=== PATIENT | male | born 1980 | race Two or more races ===

== ENCOUNTER 2024-02-29 11:16 | Inpatient (IN) | payer OTHER ==
[2024-03-06] MEDS ORDERED: LIDOCAINE HCL 1%/EPINEPHRINE 20ML VIAL IJ ONE (17:30)
[2024-03-06] MEDS ORDERED: BUPIVACAINE HCL 30 ML VIAL IJ ONE (17:30)
[2024-03-06] MEDS ORDERED: CEFTRIAXONE SODIUM 2,000 MG in 0.9 % SODIUM CHLORIDE 50 ML IV ONE (17:30)
[2024-03-06] MEDS ORDERED: METRONIDAZOLE/SODIUM CHLORIDE 200 ML IV ONE (17:30)
[2024-03-06] MEDS ORDERED: OxyCODONE HCL 5 MG TABLET (ROXICODONE) PO PRN (19:30)
[2024-03-06] MEDS ORDERED: 0.9 % SODIUM CHLORIDE 1,000 ML IV SCH (19:30)
[2024-03-06] MEDS ORDERED: DEXTROSE 50 % IN WATER 0.5 G/ML DISP.SYRIN IV PRN (19:30)
[2024-03-06] MEDS ORDERED: ONDANSETRON HCL 2 MG/ML VIAL IV PRN (19:30)
[2024-03-06] MEDS ORDERED: MORPHINE SULFATE 4 MG/ML CARTRIDGE IV PRN (19:30)
[2024-03-06] MEDS ORDERED: ACETAMINOPHEN 500 MG GEL..CAP PO SCH (20:00)
[2024-03-06] MEDS ORDERED: METOCLOPRAMIDE HCL 5 MG/ML VIAL IV ONE (20:20)
[2024-03-06] MEDS ORDERED: PROMETHAZINE HCL 50 MG/ML AMPUL IV ONE (20:20)
[2024-03-06] MEDS ORDERED: CELECOXIB 200 MG CAPSULE PO SCH (21:00)
[2024-03-06] MEDS ORDERED: FAMOTIDINE/PF 20 MG/2 ML VIAL IV PUSH SCH (21:00)
[2024-03-06 21:35] LABS: HEMATOCRIT 38.1 % (39.0-48.0); MEAN CELL VOLUME 85.2 fL (80.0-100.00); PLATELET COUNT 315 K/uL (150-450); RED BLOOD COUNT 4.47 M/uL (4.00-6.00); RED CELL DISTRIBUTION WIDTH 13.9 % (11.5-14.5)
[2024-03-06 21:43] LABS: ALBUMIN 3.4 gm/dL (3.4-5.0); CALCIUM 8.7 mg/dL (8.5-10.1); CREATININE SERUM 0.98 mg/dL (0.70-1.30); GFR 83.09; MAGNESIUM 2.1 mg/dL (1.8-2.4); PHOSPHOROUS 3.4 mg/dL (2.5-4.9); POTASSIUM 3.79 mEq/L (3.5-5.1)
[2024-03-07] MEDS ORDERED: GABAPENTIN 300 MG CAPSULE PO SCH (01:00)
[2024-03-07 06:48] LABS: HEMATOCRIT 37.2 % (39.0-48.0); HEMOGLOBIN 12.9 g/dL (13-16.00); MEAN CELL VOLUME 84.4 fL (80.0-100.00); MEAN CORPUSCULAR HEMOGLOBIN 29.2 pg (27.00-32.0); MEAN CORPUSCULAR HGB CONC 34.5 g/dl (32.0-36.0); PLATELET COUNT 302 K/uL (150-450); RED BLOOD COUNT 4.41 M/uL (4.00-6.00); RED CELL DISTRIBUTION WIDTH 14.2 % (11.5-14.5)
[2024-03-07 07:40] LABS: ALBUMIN 3.1 gm/dL (3.4-5.0); CALCIUM 8.9 mg/dL (8.5-10.1); CREATININE SERUM 0.85 mg/dL (0.70-1.30); GFR 97.92; MAGNESIUM 2.1 mg/dL (1.8-2.4); PHOSPHOROUS 3.6 mg/dL (2.5-4.9); POTASSIUM 4.15 mEq/L (3.5-5.1)
[2024-03-07 08:00] VITALS: BP 125/66; O2SAT 100
[2024-03-07] MEDS ORDERED: HYOSCYAMINE SULFATE 0.125 MG TAB.SUBL SL SCH (09:00)
[2024-03-07] MEDS ORDERED: ENOXAPARIN SODIUM 40 MG/0.4 ML SYRINGE SUBCUTANEO SCH (17:00)
[2024-03-07] MEDS ORDERED: POLYETHYLENE GLYCOL 3350 17 GM BLIST.PACK PO SCH (17:00)
[2024-03-07 18:27] VITALS: BP 113/75; O2SAT 99
[2024-03-08 06:50] VITALS: BP 132/72; O2SAT 95
[2024-03-08] MEDS ORDERED: PERCOCET 5-3251 EACH PO (07:56)
[2024-03-08] MEDS ORDERED: HYOSCYAMINE0.125 M1 SL (07:56)
[2024-03-08] MEDS ORDERED: ENOXAPARIN SODIUM 40 MG/0.4 ML SYRINGE SUBCUTANEO SCH (09:00)
== END 2024-03-08 08:54 | disposition home or self-care (01) | DRG 337 ==
LOC: O/R 03-06 07:10 → SURH 03-06 11:15
PROVIDERS: ADMIT Surgery; ATTEND Surgery
PROC: 0DBV0ZX Excision of Mesentery, Open Approach, Diagnostic (ICD-10-PCS; 2024-03-06)
PROC: 0DNN0ZZ Release Sigmoid Colon, Open Approach (ICD-10-PCS; principal; 2024-03-06 11:15)
DX: C18.7 Malignant neoplasm of sigmoid colon (principal); R59.0 Localized enlarged lymph nodes; D64.9 Anemia, unspecified

== ENCOUNTER 2024-04-20 06:00 | Day surgery (SDC) | payer OTHER ==
[~2024-04-20 06:00] MED LIST: HYOSCYAMINE0.125 M1 SL; PERCOCET 5-3251 EACH PO
[2024-04-20] MEDS ORDERED: CEFAZOLIN SODIUM 1,000 MG VIAL ONE (07:59)
[2024-04-20] MEDS ORDERED: BUPIVACAINE HCL/Mpf 0.5% 10ML VIAL ONE ×2 (08:53→09:33)
[2024-04-20] MEDS ORDERED: LIDOCAINE HCL 1% 20 ML VIAL IJ ONE (08:53)
[2024-04-20] MEDS ORDERED: HEPARIN SODIUM,PORCINE/PF 100 UNIT/ML SYRINGE IV ONE (09:15)
[2024-04-20] MEDS ORDERED: PERCOCET 5-3251 EACH PO (09:55)
== END 2024-04-20 11:25 | disposition home or self-care (01) ==
LOC: CIR.AMB 06:00
PROVIDERS: ATTEND Surgery
DX: C18.7 Malignant neoplasm of sigmoid colon (principal); C48.0 Malignant neoplasm of retroperitoneum; C48.1 Malignant neoplasm of specified parts of peritoneum; R59.0 Localized enlarged lymph nodes
CPT/HCPCS: 36561; C1751

== ENCOUNTER 2024-06-06 17:04 | Inpatient (IN) | payer OTHER ==
[~2024-06-06] VITALS: Ht 167.6 cm; Wt 0.5 kg
[2024-06-06] MEDS ORDERED: [UNRECOGNIZED DRUG - OTHER] (17:12)
--- NOTE | 2024-06-06 17:12 | NUR ---
PACIENTE MASCULINO ALERTA Y ORIENTADO X3, LLEGA A NIELS DE EMERGENCIA EN AMBULANCIA Y ES TRASLADO DEL CT DE [place]. REFIERE DOLOR ABDOMINAL LEVY Y DOMINGO.
[2024-06-06] MEDS ORDERED: 0.9 % SODIUM CHLORIDE 1,000 ML IV SCH ×2 (17:45→23:00)
[2024-06-06] MEDS ORDERED: PIPERACILLIN/TAZOBACTAM SODIUM 3.375 GM VIAL IV ONE (17:45)
--- NOTE | 2024-06-06 17:46 | NUR ---
SE LE ORIENTA A PACIENTE SOBRE LA ORDEN MEDICA, REFIERE ENTENDER LAS MISMAS. SE CANALIZA Y SE LE COLOCA EL IVF'S, SE LE ANNIE LAS MUESTRAS Y SE ADMINISTRAN EL MEDICAMENTO Y SE NOTIFICA PARA REALIZA CT TALIA LA ORDEN MEDICA.
[2024-06-06 17:56] LABS: HEMOGLOBIN 11.9 g/dL (13-16.00); MEAN CELL VOLUME 91.3 fL (80.0-100.00); MEAN CORPUSCULAR HGB CONC 33.9 g/dl (32.0-36.0); PLATELET COUNT 253 K/uL (150-450); RED BLOOD COUNT 3.83 M/uL (4.00-6.00)
[2024-06-06 17:58] LABS: RED CELL DISTRIBUTION WIDTH 19.6 % (11.5-14.5)
[2024-06-06 18:09] LABS: PH,URINE 6.5 (5.0-8.0); URINE APPEARANCE Clear; URINE BILIRRUBIN Negative (NEGATIVE); URINE BLOOD Negative; URINE COLOR Yellow; URINE GLUCOSE Negative (NEGATIVE); URINE KETONE Trace (NEGATIVE); URINE LEUKOCYTE Negative; URINE NITRATE Negative; URINE PROTEIN Negative (NEGATIVE)
[2024-06-06 18:12] LABS: INR 1.15; PARTIAL THROMBOPLASTIN TIME 29.2 SECONDS (22.0-34.0); PROTHROMBIN TIME 12.4 SECONDS (9.0-11.5)
[2024-06-06 18:13] LABS: URINE RBC 18.7 uL (0.0-20.8); URINE WBC 3.3 uL (0.0-23.2)
[2024-06-06 18:14] LABS: URINE BACTERIA 1.2 uL (0.0-1933); URINE CAST 0.14 uL (0.0-1.40); URINE EPITHELIAL CELLS 1.2 uL (0.0-38.8)
[2024-06-06 18:16] LABS: BILIRUBIN TOTAL 1.11 mg/dL (0.3-1.2); CALCIUM 9.6 mg/dL (8.5-10.1); CREATININE SERUM 1.38 mg/dL (0.70-1.30); GFR 55.97; GLOBULINA 5.2 G/DL (2.4-3.5); POTASSIUM 4.18 mEq/L (3.5-5.1); TOTAL PROTEIN 8.2 gm/dL (6.4-8.2)
[2024-06-06] MEDS ORDERED: CEFTRIAXONE SODIUM 2,000 MG in 0.9 % SODIUM CHLORIDE 100 ML IV SCH (22:58)
[2024-06-06] MEDS ORDERED: ACETAMINOPHEN 500 MG GEL..CAP PO PRN (23:00)
[2024-06-07] MEDS ORDERED: MORPHINE SULFATE 2 MG/ML SYRINGE IV PRN (00:30)
[2024-06-07] MEDS ORDERED: KETOROLAC TROMETHAMINE 15 MG VIAL IV ONE (00:30)
[2024-06-07 00:39] LABS: INR 1.15; PARTIAL THROMBOPLASTIN TIME 29.5 SECONDS (22.0-34.0); PROTHROMBIN TIME 12.4 SECONDS (9.0-11.5)
[2024-06-07 07:43] VITALS: BP 126/71; O2SAT 97
[2024-06-07] MEDS ORDERED: ENOXAPARIN SODIUM 40 MG/0.4 ML SYRINGE SUBCUTANEO SCH (09:00)
[2024-06-07] MEDS ORDERED: FAMOTIDINE/PF 20 MG in 0.9 % SODIUM CHLORIDE 8 ML IV PUSH SCH (09:00)
[2024-06-07 15:30] VITALS: BP 133/68; O2SAT 97
[2024-06-07 16:41] VITALS: BP 144/83; O2SAT 96
[2024-06-07] MEDS ORDERED: TRAMADOL HCL 50 MG TABLET PO PRN (18:00)
[2024-06-08 00:13] VITALS: BP 111/66; O2SAT 95
[2024-06-08 08:49] VITALS: BP 139/84; O2SAT 97
[2024-06-08 08:51] LABS: HEMATOCRIT 33.1 % (39.0-48.0); HEMOGLOBIN 11.6 g/dL (13-16.00); MEAN CELL VOLUME 89.3 fL (80.0-100.00); MEAN CORPUSCULAR HEMOGLOBIN 31.4 pg (27.00-32.0); MEAN CORPUSCULAR HGB CONC 35.2 g/dl (32.0-36.0); PLATELET COUNT 291 K/uL (150-450); RED CELL DISTRIBUTION WIDTH 19.8 % (11.5-14.5)
[2024-06-08 09:14] LABS: ALBUMIN 2.6 gm/dL (3.4-5.0); CALCIUM 8.8 mg/dL (8.5-10.1); CREATININE SERUM 1.28 mg/dL (0.70-1.30); GFR 61.05; MAGNESIUM 2.1 mg/dL (1.8-2.4); PHOSPHOROUS 3.9 mg/dL (2.5-4.9); POTASSIUM 4.35 mEq/L (3.5-5.1)
[2024-06-08 16:17] VITALS: BP 128/73; O2SAT 95
[2024-06-08] MEDS ORDERED: MIDAZOLAM HCL 2 MG/2 ML VIAL IV PUSH ONE (17:00)
[2024-06-08] MEDS ORDERED: fentaNYL CITRATE 50 MCG/ML AMPUL IV PUSH ONE ×2 (17:00→18:15)
[2024-06-09 00:30] VITALS: BP 136/78; O2SAT 100
[2024-06-09 08:52] VITALS: BP 132/84; O2SAT 95
[2024-06-09 16:49] VITALS: BP 137/87; O2SAT 95
[2024-06-09] MEDS ORDERED: TRAMADOL HCL 50 MG TABLET PO PRN (18:45)
[2024-06-09 19:31] LABS: URINE APPEARANCE Cloudy; URINE BILIRRUBIN Small (NEGATIVE); URINE BLOOD Large; URINE COLOR Red; URINE GLUCOSE Negative (NEGATIVE); URINE LEUKOCYTE Moderate; URINE NITRATE Negative; URINE UROBILINOGEN 0.2 E.U./dl
[2024-06-09 19:34] LABS: URINE BACTERIA 380.6 uL (0.0-1933); URINE CAST 6.82 uL (0.0-1.40); URINE EPITHELIAL CELLS 62.5 uL (0.0-38.8)
[2024-06-09 19:55] LABS: URINE KETONE 40 (NEGATIVE); URINE MUCUS MODERATE; URINE PROTEIN 300 (NEGATIVE); URINE RBC > 10558.9 uL (0.0-20.8)
[2024-06-10] VITALS: BP 119/74; O2SAT 94
[2024-06-10 08:52] VITALS: BP 137/83; O2SAT 95
[2024-06-10 16:00] VITALS: BP 132/86; O2SAT 96
[2024-06-11 01:55] VITALS: BP 119/73; O2SAT 94
[2024-06-11 08:53] VITALS: BP 102/69; O2SAT 95
[2024-06-11 16:00] VITALS: BP 137/77; O2SAT 96
[2024-06-12] VITALS: BP 110/73; O2SAT 96
[2024-06-12] MEDS ORDERED: TRAMADOL HCL 50 MG TABLET PO PRN (05:15)
[2024-06-12 06:39] LABS: HEMATOCRIT 32.5 % (39.0-48.0); HEMOGLOBIN 11.2 g/dL (13-16.00); MEAN CELL VOLUME 91.4 fL (80.0-100.00); MEAN CORPUSCULAR HEMOGLOBIN 31.6 pg (27.00-32.0); MEAN CORPUSCULAR HGB CONC 34.5 g/dl (32.0-36.0); PLATELET COUNT 333 K/uL (150-450); RED BLOOD COUNT 3.56 M/uL (4.00-6.00); RED CELL DISTRIBUTION WIDTH 19.7 % (11.5-14.5)
[2024-06-12 07:06] LABS: CALCIUM 8.9 mg/dL (8.5-10.1); CREATININE SERUM 0.73 mg/dL (0.70-1.30); GFR 116.72; POTASSIUM 4.04 mEq/L (3.5-5.1)
[2024-06-12 08:00] VITALS: BP 117/67; O2SAT 96
[2024-06-12 16:26] VITALS: BP 153/70; O2SAT 97
[2024-06-12 16:33] VITALS: BP 126/72; O2SAT 97
[2024-06-12] MEDS ORDERED: VANCOMYCIN HCL 1,000 MG VIAL IV SCH (21:00)
[2024-06-13] VITALS: BP 113/70; O2SAT 97
[2024-06-13] MEDS ORDERED: AZITHROMYCIN 500 MG VIAL IV STA (05:44)
[2024-06-13 06:53] LABS: HEMOGLOBIN 11.4 g/dL (13-16.00); MEAN CELL VOLUME 92.3 fL (80.0-100.00); MEAN CORPUSCULAR HGB CONC 33.6 g/dl (32.0-36.0); PLATELET COUNT 358 K/uL (150-450); RED BLOOD COUNT 3.68 M/uL (4.00-6.00); RED CELL DISTRIBUTION WIDTH 19.8 % (11.5-14.5)
[2024-06-13 06:55] LABS: ERYTHROCYTE SEDIMENTATION RATE 75 mm/hr
[2024-06-13 07:27] LABS: CALCIUM 9.1 mg/dL (8.5-10.1); CREATININE SERUM 0.7 mg/dL (0.70-1.30); GFR 122.51; MAGNESIUM 1.9 mg/dL (1.8-2.4); PHOSPHOROUS 3.4 mg/dL (2.5-4.9); POTASSIUM 3.99 mEq/L (3.5-5.1)
[2024-06-13 07:28] LABS: C-REACTIVE PROTEIN 11.6 MG/DL (0.00-0.29)
[2024-06-13 08:50] VITALS: BP 112/73; O2SAT 95
[2024-06-13 16:00] VITALS: BP 113/73; O2SAT 95
[2024-06-13] MEDS ORDERED: VANCOMYCIN HCL 1,000 MG VIAL ONE (16:38)
[2024-06-14 00:45] VITALS: BP 107/70; O2SAT 98
[2024-06-14] MEDS ORDERED: AZITHROMYCIN 500 MG VIAL IV ONE (07:15)
[2024-06-14] MEDS ORDERED: VANCOMYCIN HCL 1,000 MG VIAL ONE ×3 (07:15→14:13)
[2024-06-14 08:56] VITALS: BP 119/74; O2SAT 96
[2024-06-14] MEDS ORDERED: AZITHROMYCIN 500 MG VIAL IV SCH (09:00)
[2024-06-14 16:29] VITALS: BP 120/71; O2SAT 96
[2024-06-15 00:50] VITALS: BP 138/89; O2SAT 98
[2024-06-15] MEDS ORDERED: AZITHROMYCIN 500 MG VIAL IV ONE (06:46)
[2024-06-15] MEDS ORDERED: VANCOMYCIN HCL 1,000 MG VIAL ONE ×2 (06:47→14:23)
[2024-06-15 08:00] VITALS: BP 138/95; O2SAT 96
[2024-06-15] MEDS ORDERED: ALPRAzolam 0.25 MG TABLET PO SCH (09:44)
[2024-06-15 16:00] VITALS: BP 131/77; O2SAT 96
[2024-06-16 00:15] VITALS: BP 155/88; O2SAT 95
[2024-06-16] MEDS ORDERED: AZITHROMYCIN 500 MG VIAL IV ONE (06:31)
[2024-06-16] MEDS ORDERED: VANCOMYCIN HCL 1,000 MG VIAL ONE (06:32)
[2024-06-16 08:40] VITALS: BP 131/83; O2SAT 95
[2024-06-16] MEDS ORDERED: TRAMADOL HCL50 MG PO (11:51)
[2024-06-16] MEDS ORDERED: AZITHROMYCIN500 MG PO (11:51)
== END 2024-06-16 13:51 | disposition home or self-care (01) | DRG 690 ==
LOC: ER 17:04 → SEC-K 23:00 → SURG 23:00 → SEC-K 06-07 01:02 → SURH 06-07 13:42
PROVIDERS: Emergency Medicine; General Practice; Internal Medicine; Internal Medicine Infectious Disease; ADMIT Internal Medicine Geriatric Medicine; ATTEND Internal Medicine Geriatric Medicine
PROC: BW21ZZZ Computerized Tomography (CT Scan) of Abdomen and Pelvis (ICD-10-PCS; principal; 2024-06-06)
PROC: 0T9130Z Drainage of Left Kidney with Drainage Device, Percutaneous Approach (ICD-10-PCS; 2024-06-08)
PROC: 8E0ZXY6 Isolation (ICD-10-PCS; 2024-06-08)
PROC: BW21YZZ Computerized Tomography (CT Scan) of Abdomen and Pelvis using Other Contrast (ICD-10-PCS; 2024-06-13)
DX: N12 Tubulo-interstitial nephritis, not specified as acute or chronic (principal); C18.7 Malignant neoplasm of sigmoid colon; D84.9 Immunodeficiency, unspecified; C48.0 Malignant neoplasm of retroperitoneum; N17.8 Other acute kidney failure; N13.39 Other hydronephrosis

== ENCOUNTER 2024-10-31 10:01 | Inpatient (IN) | payer OTHER ==
[~2024-10-31] VITALS: Ht 152.4 cm; Wt 68.0 kg
[~2024-10-31 10:01] MED LIST changes: +AZITHROMYCIN500 MG PO; +TRAMADOL HCL50 MG PO; +[UNRECOGNIZED DRUG - OTHER]
[2024-10-31] MEDS ORDERED: FENTANYL1 EAC6 TD (11:02)
[2024-10-31] MEDS ORDERED: PERCOCET 10-321 EACH (11:03)
--- NOTE | 2024-10-31 11:03 | NUR ---
SE RECIBE PACIENTE ALERTA Y CONCIENTE X3 ACOMPANADO DE TAVERAS DOTTIE. LA MISMA INDICA QUE EL PACIENTE PRESENTA ANEMIA POR UNOS RESULTADOS DE LAB. SE PROCEDE A ANNA S/V AL PACIENTE Y SE UBICA EN KASEY 8 CON BARANDAS ELEVADAS Y NIVEL MAS BAJO DE ESTA.
[2024-10-31] MEDS ORDERED: FAMOtidine 10 MG/ML (4ML VIAL) IV ONE (11:30)
--- NOTE | 2024-10-31 12:21 | NUR ---
SE ORIENTA A PACIENTE SOBRE TX MEDICO, REFIERE ENTENDER. SE REALIZAN MUESTRAS DE LABORATORIO BAJO MEDIDAS ASEPTICAS. SE ADMINISTRA IV'S Y MEDICAMENTOS TALIA ORDEN MEDICA. SE COORDINA CT Y ROSEANN X. SE REALIZA EKG Y SE PRESENTA A .
[2024-10-31] MEDS ORDERED: MORPHINE SULFATE 4 MG/ML VIAL IV ONE (12:30)
[2024-10-31 12:37] LABS: BASO % 1.0 % (0.1-1.2); EOS # 0.03 (0.04-0.54); EOS % 1.5 % (0.7-7.0); LYMPH # 0.37 (1.18-3.74); LYMPH % 18.8 % (19.3-53.1); MEAN PLATELET VOLUME 9.20 fl (9.4-12.4); MONO # 0.50 (0.24-0.82); NEUT # 0.90 (1.56-6.13); NEUT % 45.7 % (34.0-71.1); RED CELL DISTRIBUTION WIDTH 19.0 % (11.6-14.4)
[2024-10-31 12:49] LABS: MONO % 25.4 % (4.7-12.5)
[2024-10-31 12:51] LABS: INR 1.38
[2024-10-31 12:54] LABS: ALT/SGPT 20.0 U/L (12-78); AST/SGOT 149.0 U/L (15-37); BILIRUBIN TOTAL 0.63 mg/dL (0.3-1.2); BUN CREA RATIO 29.0 (7.0-25.0); CREATININE SERUM 0.7 mg/dL (0.70-1.30); GFR 122.51; GLOBULINA 4.8 G/DL (2.4-3.5); GLUCOSE FASTING 115.0 mg/dL (65-100); OSMOLALITY SERUM 274.0 MOSM/KG (275-295)
[2024-10-31 13:32] LABS: URINE APPEARANCE Clear; URINE BILIRRUBIN Negative (NEGATIVE); URINE BLOOD Negative; URINE COLOR Yellow; URINE GLUCOSE Negative (NEGATIVE); URINE KETONE Negative (NEGATIVE); URINE LEUKOCYTE Moderate; URINE NITRATE Negative; URINE UROBILINOGEN 1.0 E.U./dl
[2024-10-31 13:33] LABS: URINE BACTERIA 6287.7 uL (0.0-1933); URINE EPITHELIAL CELLS 2.4 uL (0.0-38.8); URINE RBC 15.1 uL (0.0-20.8); URINE WBC 906.8 uL (0.0-23.2)
[2024-10-31 13:37] LABS: URINE CAST 0.43 uL (0.0-1.40); URINE PROTEIN 100 (NEGATIVE)
--- NOTE | 2024-10-31 13:40 | NUR ---
SE ORIENTA A PACIENTE SOBRE PROCESO DE TRANSFUSION DE EDY, REFIERE ENTENDER. SE PROVEE CONSENTIMIENTO PARA TRANSFUSION DE EDY, PACIENTE Y MEDICO FIRMA DOCUMENTO. SE COLECTAN MUESTRAS DE LABORATORIO BAJO MEDIDAS ASEPTICAS. SE REALIZA REQUISION PARA 3 UNIDADES DE PRBC Y SE LLEVA AL BANCO DE EDY LA CUAL NOTIFICA A BANCO DE EDY [facility]. PACIENTE NO TIENE EXPENDIENTE PREVIO POR LO CUAL SE COLECTA MUESTRA DE TIPO Y MYESHA Y SE LLEVA AL BANCO DE EDY.
[2024-10-31] MEDS ORDERED: 0.9 % SODIUM CHLORIDE 1,000 ML IV SCH (15:00)
[2024-10-31] MEDS ORDERED: OxyCODONE HCL 5 MG TABLET (ROXICODONE) PO PRN ×2 (15:15→15:51)
[2024-10-31] MEDS ORDERED: CEFTRIAXONE SODIUM 2,000 MG VIAL ONE (15:33)
[2024-10-31] MEDS ORDERED: VANCOMYCIN HCL 1,000 MG VIAL ONE (15:59)
[2024-10-31] MEDS ORDERED: ACETAMINOPHEN 500 MG GEL..CAP PO PRN (16:00)
[2024-10-31] MEDS ORDERED: VANCOMYCIN HCL 1,000 MG VIAL IV SCH (17:00)
[2024-10-31] MEDS ORDERED: CEFTRIAXONE SODIUM 1,000 MG VIAL IV SCH (17:00)
[2024-10-31] MEDS ORDERED: CEFTRIAXONE SODIUM 2,000 MG VIAL IV SCH (17:00)
[2024-10-31 18:15] VITALS: BP 117/82
[2024-10-31] MEDS ORDERED: FAMOTIDINE/PF 20 MG in 0.9 % SODIUM CHLORIDE 8 ML IV PUSH SCH (21:00)
[2024-11-01 01:58] VITALS: BP 127/81; O2SAT 96
[2024-11-01 08:43] VITALS: BP 118/80; O2SAT 96
[2024-11-01] MEDS ORDERED: 0.9 % SODIUM CHLORIDE 10 ML VIAL IJ ONE ×2 (08:51→13:16)
[2024-11-01] MEDS ORDERED: MEROPENEM 500 MG/VIAL VIAL IV NR (15:30)
[2024-11-01] MEDS ORDERED: LACTOBACILLUS ACIDOPHILUS 1 CAP CAP PO SCH (17:00)
[2024-11-01] MEDS ORDERED: MEROPENEM 500 MG/VIAL VIAL IV SCH (20:00)
[2024-11-01 20:50] LABS: BASO % 0.7 % (0.1-1.2); EOS # 0.02 (0.04-0.54); EOS % 0.7 % (0.7-7.0); LYMPH # 0.35 (1.18-3.74); LYMPH % 12.8 % (19.3-53.1); MEAN PLATELET VOLUME 9.50 fl (9.4-12.4); MONO # 0.63 (0.24-0.82); NEUT # 1.50 (1.56-6.13); NEUT % 54.8 % (34.0-71.1); RED CELL DISTRIBUTION WIDTH 16.6 % (11.6-14.4)
[2024-11-01 21:14] LABS: MONO % 23.0 % (4.7-12.5)
[2024-11-02 03:09] VITALS: BP 116/80; O2SAT 94
[2024-11-02 06:15] LABS: BASO % 0.9 % (0.1-1.2); EOS # 0.04 (0.04-0.54); EOS % 1.1 % (0.7-7.0); LYMPH # 0.47 (1.18-3.74); LYMPH % 13.4 % (19.3-53.1); MEAN PLATELET VOLUME 9.30 fl (9.4-12.4); MONO # 0.67 (0.24-0.82); NEUT # 1.99 (1.56-6.13); NEUT % 56.5 % (34.0-71.1); RED CELL DISTRIBUTION WIDTH 17.2 % (11.6-14.4)
[2024-11-02 06:33] LABS: ALT/SGPT 13.0 U/L (12-78); AST/SGOT 81.0 U/L (15-37); BILIRUBIN TOTAL 0.69 mg/dL (0.3-1.2); BUN CREA RATIO 31.0 (7.0-25.0); CREATININE SERUM 0.39 mg/dL (0.70-1.30); GFR 240.61; GLOBULINA 3.7 G/DL (2.4-3.5); GLUCOSE FASTING 113.0 mg/dL (65-100); OSMOLALITY SERUM 274.0 MOSM/KG (275-295)
[2024-11-02 07:38] LABS: MONO % 19.0 % (4.7-12.5)
[2024-11-02 07:39] LABS: BAND MAN 6.0 %; LYMPHOCYTE MAN 19.0 %; MONOCYTE MAN 16.0 %; NEUTROPHILS MAN 55.0 %
[2024-11-02] MEDS ORDERED: fentaNYL 50 MCG PATCH.TD72 TD SCH ×2 (09:00)
[2024-11-02] MEDS ORDERED: ENOXAPARIN SODIUM 40 MG/0.4 ML SYRINGE SUBCUTANEO SCH (09:00)
[2024-11-02 09:53] VITALS: BP 124/80; O2SAT 95
[2024-11-02] MEDS ORDERED: IOVERSOL 320 MG/ML - 50 ML VIAL IV ONE (16:05)
[2024-11-02] MEDS ORDERED: BUPIVACAINE HCL/MPF 0.5% 30ML VIAL ONE (16:05)
[2024-11-02 17:57] VITALS: BP 127/89
[2024-11-02] MEDS ORDERED: ACETAMINOPHEN 500 MG GEL..CAP PO ONE (18:52)
[2024-11-02] MEDS ORDERED: MORPHINE SULFATE 4 MG/ML VIAL IV ONE (19:00)
[2024-11-02] MEDS ORDERED: CIPROFLOXACIN IN 5 % DEXTROSE 400 MG/200 ML PIGGYBAG IV SCH (21:00)
[2024-11-02 21:42] LABS: URINE APPEARANCE Turbid; URINE BILIRRUBIN Moderate (NEGATIVE); URINE BLOOD Small; URINE COLOR Red; URINE GLUCOSE Negative (NEGATIVE); URINE KETONE Trace (NEGATIVE); URINE LEUKOCYTE Large; URINE NITRATE Positive; URINE PROTEIN 30 (NEGATIVE); URINE UROBILINOGEN 0.2 E.U./dl
[2024-11-02 21:46] LABS: URINE BACTERIA 8752.3 uL (0.0-1933); URINE EPITHELIAL CELLS 51.4 uL (0.0-38.8)
[2024-11-02 22:19] LABS: URINE CAST 0.00 uL (0.0-1.40); URINE RBC > 10558.9 uL (0.0-20.8); URINE WBC > 5548.3 uL (0.0-23.2)
[2024-11-03 01:39] VITALS: BP 103/68; O2SAT 93
[2024-11-03 09:01] VITALS: BP 102/67; O2SAT 95
[2024-11-03] MEDS ORDERED: FAMOTIDINE/PF 20 MG/2 ML VIAL ONE (15:50)
[2024-11-03 18:45] VITALS: BP 112/77
[2024-11-03 20:51] LABS: BASO % 0.9 % (0.1-1.2); EOS # 0.01 (0.04-0.54); EOS % 0.2 % (0.7-7.0); LYMPH # 0.20 (1.18-3.74); LYMPH % 4.4 % (19.3-53.1); MEAN PLATELET VOLUME 8.80 fl (9.4-12.4); MONO # 0.44 (0.24-0.82); MONO % 9.7 % (4.7-12.5); NEUT # 3.39 (1.56-6.13); NEUT % 74.9 % (34.0-71.1); RED CELL DISTRIBUTION WIDTH 16.9 % (11.6-14.4)
[2024-11-03 21:23] LABS: BAND MAN 8.0 %; LYMPHOCYTE MAN 4.0 %; METAMYELOCYTE 2.0 %; MONOCYTE MAN 6.0 %; NEUTROPHILS MAN 80.0 %
[2024-11-04 02:51] VITALS: BP 123/82; O2SAT 91
[2024-11-04 07:42] LABS: BASO % 1.5 % (0.1-1.2); EOS # 0.04 (0.04-0.54); EOS % 0.7 % (0.7-7.0); LYMPH # 0.29 (1.18-3.74); LYMPH % 4.8 % (19.3-53.1); MEAN PLATELET VOLUME 11.30 fl (9.4-12.4); MONO # 0.41 (0.24-0.82); MONO % 6.8 % (4.7-12.5); NEUT # 4.52 (1.56-6.13); NEUT % 74.3 % (34.0-71.1); RED CELL DISTRIBUTION WIDTH 16.7 % (11.6-14.4)
[2024-11-04 08:02] LABS: ALT/SGPT 34.0 U/L (12-78); AST/SGOT 189.0 U/L (15-37); BILIRUBIN TOTAL 1.9 mg/dL (0.3-1.2); BUN CREA RATIO 40.0 (7.0-25.0); CREATININE SERUM 0.3 mg/dL (0.70-1.30); GFR 325.7; GLOBULINA 3.9 G/DL (2.4-3.5); GLUCOSE FASTING 110.0 mg/dL (65-100); OSMOLALITY SERUM 276.0 MOSM/KG (275-295)
[2024-11-04 09:43] VITALS: BP 117/82; O2SAT 94
[2024-11-04] MEDS ORDERED: POLYETHYLENE GLYCOL 3350 17 GM BLIST.PACK PO STA (13:46)
[2024-11-04 17:00] VITALS: BP 121/80; O2SAT 94
[2024-11-04] MEDS ORDERED: POLYETHYLENE GLYCOL 3350 17 GM BLIST.PACK PO SCH (21:00)
[2024-11-05 02:09] VITALS: BP 124/85
[2024-11-05 07:58] LABS: BASO % 0.7 % (0.1-1.2); EOS # 0.08 (0.04-0.54); EOS % 1.0 % (0.7-7.0); LYMPH # 0.52 (1.18-3.74); LYMPH % 6.5 % (19.3-53.1); MEAN PLATELET VOLUME 10.40 fl (9.4-12.4); MONO # 0.30 (0.24-0.82); MONO % 3.7 % (4.7-12.5); NEUT # 6.01 (1.56-6.13); NEUT % 75.0 % (34.0-71.1); RED CELL DISTRIBUTION WIDTH 16.3 % (11.6-14.4)
[2024-11-05 08:23] LABS: MANUAL PLATELET COUNT 81
[2024-11-05] MEDS ORDERED: ENOXAPARIN SODIUM 40 MG/0.4 ML SYRINGE SUBCUTANEO SCH (09:00)
[2024-11-05 09:05] VITALS: BP 140/88; O2SAT 93
[2024-11-05] MEDS ORDERED: LACTULOSE 20 G/30 ML BLIST.PACK PO STA (13:54)
[2024-11-05] MEDS ORDERED: MAGNESIUM HYDROXIDE 30 ML BLIST.PACK PO STA (13:54)
[2024-11-05] MEDS ORDERED: GABAPENTIN 300 MG CAPSULE PO STA (13:55)
[2024-11-05 18:30] VITALS: BP 127/88; O2SAT 94
[2024-11-05] MEDS ORDERED: GABAPENTIN 300 MG CAPSULE PO SCH (21:00)
[2024-11-06 02:35] VITALS: BP 125/81; O2SAT 90
[2024-11-06 08:21] LABS: BASO % 0.9 % (0.1-1.2); EOS # 0.15 (0.04-0.54); EOS % 1.0 % (0.7-7.0); LYMPH # 1.16 (1.18-3.74); LYMPH % 7.9 % (19.3-53.1); MEAN PLATELET VOLUME 9.70 fl (9.4-12.4); MONO # 0.71 (0.24-0.82); MONO % 4.8 % (4.7-12.5); NEUT # 9.74 (1.56-6.13); NEUT % 65.9 % (34.0-71.1); RED CELL DISTRIBUTION WIDTH 16.8 % (11.6-14.4)
[2024-11-06 08:43] VITALS: BP 122/78; O2SAT 97
[2024-11-06 08:59] LABS: BAND MAN 11.0 %; EOSINOPHIL MAN 2.0 %; LYMPHOCYTE MAN 6.0 %; METAMYELOCYTE 1.0 %; MONOCYTE MAN 11.0 %; NEUTROPHILS MAN 59.0 %
[2024-11-06] MEDS ORDERED: PANTOPRAZOLE SODIUM 40 MG TABLET.DR PO SCH (09:00)
[2024-11-06] MEDS ORDERED: MEROPENEM 500 MG/VIAL VIAL IV SCH (18:00)
[2024-11-06 19:27] VITALS: BP 134/84; O2SAT 99
[2024-11-06 21:06] LABS: D DIMER 31.88 MG/L
[2024-11-06 21:48] LABS: LDH 2433.0 U/L (87-241)
[2024-11-06 23:08] LABS: URINE APPEARANCE Cloudy; URINE BILIRRUBIN Negative (NEGATIVE); URINE BLOOD Large; URINE COLOR Orange; URINE GLUCOSE Negative (NEGATIVE); URINE KETONE 15 (NEGATIVE); URINE LEUKOCYTE Large; URINE NITRATE Negative; URINE UROBILINOGEN 1.0 E.U./dl
[2024-11-06 23:11] LABS: URINE BACTERIA 278.3 uL (0.0-1933); URINE EPITHELIAL CELLS 19.6 uL (0.0-38.8); URINE RBC 5915.1 uL (0.0-20.8); URINE WBC 421.3 uL (0.0-23.2)
[2024-11-06 23:51] LABS: URINE CAST 0.58 uL (0.0-1.40); URINE PROTEIN 100 (NEGATIVE)
[2024-11-07 01:10] VITALS: BP 123/78
[2024-11-07 01:54] VITALS: O2SAT 94
[2024-11-07 06:50] LABS: BASO % 0.1 % (0.1-1.2); EOS # 0.09 (0.04-0.54); EOS % 0.5 % (0.7-7.0); LYMPH # 1.27 (1.18-3.74); LYMPH % 7.7 % (19.3-53.1); MEAN PLATELET VOLUME 11.00 fl (9.4-12.4); MONO # 0.87 (0.24-0.82); MONO % 5.3 % (4.7-12.5); NEUT # 11.04 (1.56-6.13); NEUT % 66.6 % (34.0-71.1); RED CELL DISTRIBUTION WIDTH 17.2 % (11.6-14.4)
[2024-11-07 07:31] LABS: ALT/SGPT 18 U/L (12-78); AST/SGOT 135 U/L (15-37); BILIRUBIN TOTAL 1.22 mg/dL (0.3-1.2); BUN CREA RATIO 53 (7.0-25.0); CREATININE SERUM < 0.15 mg/dL (0.70-1.30); GFR 724.83; GLOBULINA 3.5 G/DL (2.4-3.5); GLUCOSE FASTING 100 mg/dL (65-100); OSMOLALITY SERUM 272 MOSM/KG (275-295)
[2024-11-07 09:14] VITALS: BP 126/84; O2SAT 98
[2024-11-07] MEDS ORDERED: GABAPENTIN 400 MG CAPSULE PO SCH (13:00)
[2024-11-07] MEDS ORDERED: LACTULOSE 20 G/30 ML BLIST.PACK PO STA (14:37)
[2024-11-07] MEDS ORDERED: FLUCONAZOLE IN NACL,ISO-OSM 400 MG/200 ML PIGGYBAG IV NR (16:45)
[2024-11-07] MEDS ORDERED: VANCOMYCIN HCL 1,000 MG VIAL IV SCH (17:00)
[2024-11-07 17:10] VITALS: BP 130/83; O2SAT 98
[2024-11-07] MEDS ORDERED: DEXAMETHASONE SODIUM PHOSPHATE 4 MG/ML VIAL IV NR (17:15)
[2024-11-07] MEDS ORDERED: DIPHENHYDRAMINE HCL 50 MG in DEXTROSE 5 % IN WATER 50 ML IV ONE (20:45)
[2024-11-08 01:50] VITALS: BP 130/85; O2SAT 95
[2024-11-08 06:23] LABS: BASO % 0.8 % (0.1-1.2); EOS # 0.01 (0.04-0.54); EOS % 0.1 % (0.7-7.0); LYMPH # 0.97 (1.18-3.74); LYMPH % 6.1 % (19.3-53.1); MEAN PLATELET VOLUME 10.50 fl (9.4-12.4); MONO # 0.57 (0.24-0.82); MONO % 3.6 % (4.7-12.5); NEUT # 10.97 (1.56-6.13); NEUT % 68.8 % (34.0-71.1); RED CELL DISTRIBUTION WIDTH 17.0 % (11.6-14.4)
[2024-11-08 06:50] LABS: ALT/SGPT 15.0 U/L (12-78); AST/SGOT 110.0 U/L (15-37); BILIRUBIN TOTAL 1.17 mg/dL (0.3-1.2); GLOBULINA 3.6 G/DL (2.4-3.5); GLUCOSE FASTING 136.0 mg/dL (65-100); OSMOLALITY SERUM 279.0 MOSM/KG (275-295)
[2024-11-08 06:51] LABS: BUN CREA RATIO 50.0 (7.0-25.0); CREATININE SERUM 0.2 mg/dL (0.70-1.30); GFR 520.04; LDH 2355.0 U/L (87-241)
[2024-11-08 07:52] LABS: BAND MAN 9.0 %; LYMPHOCYTE MAN 1.0 %; METAMYELOCYTE 5.0 %; MONOCYTE MAN 2.0 %; MYELOCYTE 12.0 %; NEUTROPHILS MAN 71.0 %
[2024-11-08 08:26] VITALS: BP 129/89; O2SAT 99
[2024-11-08] MEDS ORDERED: DEXAMETHASONE SODIUM PHOSPHATE 4 MG/ML VIAL IV SCH (09:00)
[2024-11-08] MEDS ORDERED: FLUCONAZOLE IN NACL,ISO-OSM 100 ML IV SCH (12:00)
[2024-11-08 17:00] VITALS: BP 129/91; O2SAT 98
[2024-11-08] MEDS ORDERED: MAGNESIUM HYDROXIDE 30 ML BLIST.PACK PO ONE (20:30)
[2024-11-08] MEDS ORDERED: LACTULOSE 20 G/30 ML BLIST.PACK PO ONE (20:30)
[2024-11-08] MEDS ORDERED: POLYETHYLENE GLYCOL 3350 17 GM BLIST.PACK PO SCH (21:00)
[2024-11-09 02:07] VITALS: BP 130/87
[2024-11-09 06:31] LABS: BASO % 0.8 % (0.1-1.2); EOS # 0.02 (0.04-0.54); EOS % 0.1 % (0.7-7.0); LYMPH # 1.37 (1.18-3.74); LYMPH % 6.6 % (19.3-53.1); MONO # 0.80 (0.24-0.82); MONO % 3.8 % (4.7-12.5); NEUT # 14.26 (1.56-6.13); NEUT % 68.5 % (34.0-71.1); RED CELL DISTRIBUTION WIDTH 17.4 % (11.6-14.4)
[2024-11-09] MEDS ORDERED: SOD FERRIC GLUC COMPLX/SUCROSE 62.5 MG in 0.9 % SODIUM CHLORIDE 50 ML IV SCH (09:00)
[2024-11-09 09:36] VITALS: BP 123/80; O2SAT 94
[2024-11-09] MEDS ORDERED: DIATRIZOATE MEGLUMINE, SODIUM 30 ML BOTTLE PO NR (14:30)
[2024-11-09 18:56] VITALS: BP 135/85; O2SAT 95
[2024-11-10 02:58] VITALS: BP 141/88; O2SAT 99
[2024-11-10] MEDS ORDERED: MINERAL OIL 133 ML ENEMA RECTAL NR (09:20)
[2024-11-10 09:51] VITALS: BP 126/88; O2SAT 95
[2024-11-10 15:26] LABS: BASO % 0.5 % (0.1-1.2); EOS # 0.02 (0.04-0.54); EOS % 0.1 % (0.7-7.0); LYMPH # 1.16 (1.18-3.74); LYMPH % 4.9 % (19.3-53.1); MEAN PLATELET VOLUME 11.20 fl (9.4-12.4); MONO # 0.77 (0.24-0.82); MONO % 3.2 % (4.7-12.5); NEUT # 18.93 (1.56-6.13); NEUT % 79.8 % (34.0-71.1); RED CELL DISTRIBUTION WIDTH 17.4 % (11.6-14.4)
[2024-11-10 15:43] LABS: BAND MAN 3.0 %; LYMPHOCYTE MAN 5.0 %; MANUAL PLATELET COUNT 65; METAMYELOCYTE 5.0 %; MONOCYTE MAN 3.0 %; MYELOCYTE 1.0 %; NEUTROPHILS MAN 83.0 %
[2024-11-10 15:55] LABS: INR 1.16
[2024-11-10 19:43] VITALS: BP 136/92; O2SAT 100
[2024-11-11 02:41] LABS: URINE APPEARANCE Cloudy; URINE BILIRRUBIN Negative (NEGATIVE); URINE BLOOD Large; URINE COLOR Red; URINE GLUCOSE Negative (NEGATIVE); URINE KETONE Negative (NEGATIVE); URINE LEUKOCYTE Small; URINE NITRATE Negative; URINE PROTEIN 30 (NEGATIVE); URINE UROBILINOGEN 0.2 E.U./dl
[2024-11-11 02:45] LABS: URINE BACTERIA 380.3 uL (0.0-1933); URINE WBC 77.3 uL (0.0-23.2)
[2024-11-11 02:46] LABS: URINE CAST 0.00 uL (0.0-1.40); URINE EPITHELIAL CELLS 0.9 uL (0.0-38.8); URINE RBC > 10558.9 uL (0.0-20.8)
[2024-11-11 03:04] VITALS: BP 127/82; O2SAT 98
[2024-11-11 08:02] LABS: BASO % 0.7 % (0.1-1.2); EOS # 0.01 (0.04-0.54); EOS % 0.0 % (0.7-7.0); LYMPH # 1.34 (1.18-3.74); LYMPH % 4.9 % (19.3-53.1); MEAN PLATELET VOLUME 11.90 fl (9.4-12.4); MONO # 1.27 (0.24-0.82); MONO % 4.7 % (4.7-12.5); NEUT # 21.87 (1.56-6.13); NEUT % 80.5 % (34.0-71.1); RED CELL DISTRIBUTION WIDTH 17.2 % (11.6-14.4)
[2024-11-11 08:09] LABS: ALT/SGPT 20.0 U/L (12-78); AST/SGOT 213.0 U/L (15-37); BILIRUBIN TOTAL 1.02 mg/dL (0.3-1.2); BUN CREA RATIO 42.0 (7.0-25.0); CREATININE SERUM 0.38 mg/dL (0.70-1.30); GFR 247.94; GLOBULINA 3.6 G/DL (2.4-3.5); GLUCOSE FASTING 109.0 mg/dL (65-100); OSMOLALITY SERUM 272.0 MOSM/KG (275-295)
[2024-11-11 10:34] VITALS: BP 123/83; O2SAT 98
[2024-11-11 15:14] LABS: BASO % 0.6 % (0.1-1.2); EOS # 0.01 (0.04-0.54); EOS % 0.0 % (0.7-7.0); LYMPH # 1.42 (1.18-3.74); LYMPH % 5.1 % (19.3-53.1); MEAN PLATELET VOLUME 10.80 fl (9.4-12.4); MONO # 0.85 (0.24-0.82); MONO % 3.1 % (4.7-12.5); NEUT # 22.34 (1.56-6.13); NEUT % 81.0 % (34.0-71.1); RED CELL DISTRIBUTION WIDTH 17.2 % (11.6-14.4)
[2024-11-11 17:27] VITALS: BP 131/95; O2SAT 96
[2024-11-12 02:34] VITALS: BP 132/92; O2SAT 93
[2024-11-12 07:51] LABS: BASO % 0.5 % (0.1-1.2); EOS # 0.01 (0.04-0.54); EOS % 0.0 % (0.7-7.0); LYMPH # 1.22 (1.18-3.74); LYMPH % 5.6 % (19.3-53.1); MEAN PLATELET VOLUME 10.70 fl (9.4-12.4); MONO # 0.70 (0.24-0.82); MONO % 3.2 % (4.7-12.5); NEUT # 18.01 (1.56-6.13); NEUT % 82.1 % (34.0-71.1); RED CELL DISTRIBUTION WIDTH 17.3 % (11.6-14.4)
[2024-11-12 08:53] LABS: ALT/SGPT 21.0 U/L (12-78); AST/SGOT 208.0 U/L (15-37); BILIRUBIN TOTAL 1.12 mg/dL (0.3-1.2); BUN CREA RATIO 35.0 (7.0-25.0); CREATININE SERUM 0.52 mg/dL (0.70-1.30); GFR 172.64; GLOBULINA 3.7 G/DL (2.4-3.5); GLUCOSE FASTING 118.0 mg/dL (65-100); OSMOLALITY SERUM 275.0 MOSM/KG (275-295)
[2024-11-12 08:55] LABS: BAND MAN 3.0 %; LYMPHOCYTE MAN 3.0 %; METAMYELOCYTE 4.0 %; MONOCYTE MAN 1.0 %; MYELOCYTE 2.0 %; NEUTROPHILS MAN 87.0 %
[2024-11-12 08:56] LABS: MANUAL PLATELET COUNT 89
[2024-11-12 10:06] VITALS: BP 136/90; O2SAT 96
[2024-11-12 17:47] VITALS: BP 122/80; O2SAT 99
[2024-11-13 03:08] VITALS: BP 133/90; O2SAT 98
[2024-11-13 08:16] LABS: BASO % 0.4 % (0.1-1.2); EOS # 0.01 (0.04-0.54); EOS % 0.1 % (0.7-7.0); LYMPH # 1.05 (1.18-3.74); LYMPH % 5.9 % (19.3-53.1); MEAN PLATELET VOLUME 11.20 fl (9.4-12.4); MONO # 0.58 (0.24-0.82); MONO % 3.3 % (4.7-12.5); NEUT # 14.39 (1.56-6.13); NEUT % 81.2 % (34.0-71.1); RED CELL DISTRIBUTION WIDTH 16.7 % (11.6-14.4)
[2024-11-13 09:11] VITALS: BP 123/82; O2SAT 97
[2024-11-13 09:20] LABS: BAND MAN 12.0 %; LYMPHOCYTE MAN 6.0 %; MONOCYTE MAN 2.0 %; NEUTROPHILS MAN 79.0 %
[2024-11-13 18:21] VITALS: BP 135/85; O2SAT 98
[2024-11-14 01:17] VITALS: BP 134/90; O2SAT 98
[2024-11-14 08:44] VITALS: BP 137/98; O2SAT 100
[2024-11-14 18:24] VITALS: BP 151/71
[2024-11-14 18:26] VITALS: BP 130/87
[2024-11-14] MEDS ORDERED: AMINOCAPROIC ACID 250 MG/ML VIAL IV STA (18:38)
[2024-11-14] MEDS ORDERED: AMINOCAPROIC ACID 250 MG/ML VIAL IV SCH (20:00)
[2024-11-14] MEDS ORDERED: SODIUM CHLORIDE 0.9% IV SCH (21:00)
[2024-11-14] MEDS ORDERED: AMINOCAPROIC ACID IV SCH (21:00)
[2024-11-15 01:12] VITALS: BP 130/84; O2SAT 96
[2024-11-15 08:21] VITALS: BP 123/87; O2SAT 95
[2024-11-15 15:29] LABS: BASO % 0.6 % (0.1-1.2); EOS # 0.02 (0.04-0.54); EOS % 0.2 % (0.7-7.0); LYMPH # 0.75 (1.18-3.74); LYMPH % 7.2 % (19.3-53.1); MEAN PLATELET VOLUME 11.20 fl (9.4-12.4); MONO # 0.59 (0.24-0.82); MONO % 5.7 % (4.7-12.5); NEUT # 7.91 (1.56-6.13); NEUT % 76.4 % (34.0-71.1); RED CELL DISTRIBUTION WIDTH 16.3 % (11.6-14.4)
[2024-11-15 15:56] LABS: BUN CREA RATIO 30.0 (7.0-25.0); CREATININE SERUM 0.56 mg/dL (0.70-1.30); GFR 158.49; GLUCOSE FASTING 185.0 mg/dL (65-100); OSMOLALITY SERUM 276.0 MOSM/KG (275-295)
[2024-11-15 16:01] LABS: BAND MAN 8.0 %; LYMPHOCYTE MAN 3.0 %; MONOCYTE MAN 5.0 %; NEUTROPHILS MAN 80.0 %
[2024-11-15 16:02] LABS: MYELOCYTE 4.0 %
[2024-11-15 18:58] VITALS: BP 132/93
[2024-11-16 01:00] VITALS: BP 137/94
[2024-11-16 09:08] VITALS: BP 145/90; O2SAT 96
[2024-11-16 13:27] LABS: BASO % 0.5 % (0.1-1.2); EOS # 0.02 (0.04-0.54); EOS % 0.2 % (0.7-7.0); LYMPH # 0.90 (1.18-3.74); LYMPH % 10.4 % (19.3-53.1); MEAN PLATELET VOLUME 11.00 fl (9.4-12.4); MONO # 0.51 (0.24-0.82); MONO % 5.9 % (4.7-12.5); NEUT # 6.37 (1.56-6.13); NEUT % 73.3 % (34.0-71.1); RED CELL DISTRIBUTION WIDTH 16.2 % (11.6-14.4)
[2024-11-16 13:58] LABS: BUN CREA RATIO 38.0 (7.0-25.0); CREATININE SERUM 0.4 mg/dL (0.70-1.30); GFR 233.69; GLUCOSE FASTING 137.0 mg/dL (65-100); OSMOLALITY SERUM 273.0 MOSM/KG (275-295)
[2024-11-16 14:38] LABS: BAND MAN 16.0 %; EOSINOPHIL MAN 1.0 %; LYMPHOCYTE MAN 7.0 %; MONOCYTE MAN 5.0 %; NEUTROPHILS MAN 66.0 %
[2024-11-16] MEDS ORDERED: POTASSIUM PHOS,M-BASIC-D-BASIC 3 MM/ML VIAL IV NR (16:00)
[2024-11-16 17:52] VITALS: BP 148/106; O2SAT 93
[2024-11-16] MEDS ORDERED: POLYETHYLENE GLYCOL 3350 17 GM BLIST.PACK PO SCH (21:00)
[2024-11-16] MEDS ORDERED: CLONAZEPAM 1 MG TABLET PO STA (21:54)
[2024-11-17 01:25] VITALS: BP 130/91; O2SAT 92
[2024-11-17 09:38] VITALS: BP 129/90; O2SAT 93
[2024-11-17 13:33] LABS: BASO % 0.5 % (0.1-1.2); EOS # 0.01 (0.04-0.54); EOS % 0.1 % (0.7-7.0); LYMPH # 0.74 (1.18-3.74); LYMPH % 9.2 % (19.3-53.1); MEAN PLATELET VOLUME 10.90 fl (9.4-12.4); MONO # 0.37 (0.24-0.82); MONO % 4.6 % (4.7-12.5); NEUT # 5.86 (1.56-6.13); NEUT % 73.0 % (34.0-71.1); RED CELL DISTRIBUTION WIDTH 16.0 % (11.6-14.4)
[2024-11-17 16:20] LABS: BAND MAN 2.0 %; LYMPHOCYTE MAN 12.0 %; METAMYELOCYTE 5.0 %; MONOCYTE MAN 5.0 %; MYELOCYTE 2.0 %; NEUTROPHILS MAN 73.0 %
[2024-11-17 17:57] VITALS: BP 124/88; O2SAT 97
[2024-11-18 02:16] VITALS: BP 124/85
[2024-11-18 09:30] VITALS: BP 115/85
[2024-11-18 14:47] LABS: BASO % 0.3 % (0.1-1.2); EOS # 0.03 (0.04-0.54); EOS % 0.5 % (0.7-7.0); LYMPH # 0.60 (1.18-3.74); LYMPH % 9.1 % (19.3-53.1); MEAN PLATELET VOLUME 11.30 fl (9.4-12.4); MONO # 0.45 (0.24-0.82); MONO % 6.9 % (4.7-12.5); NEUT # 4.71 (1.56-6.13); NEUT % 71.8 % (34.0-71.1); RED CELL DISTRIBUTION WIDTH 16.0 % (11.6-14.4)
[2024-11-18 15:15] LABS: BUN CREA RATIO 42.0 (7.0-25.0); CREATININE SERUM 0.33 mg/dL (0.70-1.30); GFR 291.77; GLUCOSE FASTING 154.0 mg/dL (65-100); OSMOLALITY SERUM 277.0 MOSM/KG (275-295)
[2024-11-18 18:19] VITALS: BP 124/93; O2SAT 97
[2024-11-19 02:16] VITALS: BP 114/81; O2SAT 96
[2024-11-19 08:54] VITALS: BP 130/89; O2SAT 98
[2024-11-19 18:52] VITALS: BP 122/86; O2SAT 97
[2024-11-20 02:26] VITALS: BP 123/85; O2SAT 100
[2024-11-20 06:19] LABS: BASO % 0.6 % (0.1-1.2); EOS # 0.06 (0.04-0.54); EOS % 0.9 % (0.7-7.0); LYMPH # 0.72 (1.18-3.74); LYMPH % 10.6 % (19.3-53.1); MEAN PLATELET VOLUME 11.60 fl (9.4-12.4); MONO # 0.58 (0.24-0.82); MONO % 8.5 % (4.7-12.5); NEUT # 4.51 (1.56-6.13); NEUT % 66.1 % (34.0-71.1); RED CELL DISTRIBUTION WIDTH 16.1 % (11.6-14.4)
[2024-11-20 06:51] LABS: ALT/SGPT 39.0 U/L (12-78); AST/SGOT 171.0 U/L (15-37); BILIRUBIN TOTAL 2.2 mg/dL (0.3-1.2); GLOBULINA 3.6 G/DL (2.4-3.5); GLUCOSE FASTING 96.0 mg/dL (65-100); OSMOLALITY SERUM 274.0 MOSM/KG (275-295)
[2024-11-20 06:53] LABS: BUN CREA RATIO 45.0 (7.0-25.0); CREATININE SERUM 0.29 mg/dL (0.70-1.30); GFR 338.69
[2024-11-20 08:47] LABS: BAND MAN 6.0 %; LYMPHOCYTE MAN 14.0 %; METAMYELOCYTE 4.0 %; MONOCYTE MAN 2.0 %; MYELOCYTE 4.0 %; NEUTROPHILS MAN 68.0 %
[2024-11-20 09:12] LABS: BLAST MAN 5.0 %
[2024-11-20 10:03] VITALS: BP 129/89; O2SAT 97
[2024-11-20 14:54] LABS: BILIRUBIN TOTAL 2.96 mg/dL (0.3-1.2); BILIRUBIN,CONJUGATED 1.75 mg/dL (0.0-0.2)
[2024-11-20 16:39] VITALS: BP 131/95
[2024-11-21 00:30] VITALS: BP 128/100; O2SAT 93
[2024-11-21 09:14] VITALS: BP 131/94; O2SAT 93
[2024-11-21 12:53] LABS: INR 1.17
[2024-11-21 13:23] LABS: ALT/SGPT 42.0 U/L (12-78); AST/SGOT 188.0 U/L (15-37); BILIRUBIN TOTAL 3.65 mg/dL (0.3-1.2); BUN CREA RATIO 38.0 (7.0-25.0); CREATININE SERUM 0.39 mg/dL (0.70-1.30); GFR 240.61; GLOBULINA 3.7 G/DL (2.4-3.5); GLUCOSE FASTING 124.0 mg/dL (65-100); OSMOLALITY SERUM 272.0 MOSM/KG (275-295)
[2024-11-21 13:24] LABS: LDH 3585.0 U/L (87-241)
[2024-11-21 18:09] VITALS: BP 137/100; O2SAT 98
[2024-11-22 01:00] VITALS: BP 128/96; O2SAT 96
[2024-11-22 06:46] LABS: BASO % 0.1 % (0.1-1.2); EOS # 0.05 (0.04-0.54); EOS % 0.6 % (0.7-7.0); LYMPH # 0.78 (1.18-3.74); LYMPH % 9.4 % (19.3-53.1); MONO # 0.62 (0.24-0.82); MONO % 7.5 % (4.7-12.5); NEUT # 5.75 (1.56-6.13); NEUT % 69.4 % (34.0-71.1); RED CELL DISTRIBUTION WIDTH 16.0 % (11.6-14.4)
[2024-11-22 07:16] LABS: ALT/SGPT 51.0 U/L (12-78); AST/SGOT 220.0 U/L (15-37); BILIRUBIN TOTAL 3.85 mg/dL (0.3-1.2); BILIRUBIN,CONJUGATED 2.37 mg/dL (0.0-0.2); BUN CREA RATIO 49.0 (7.0-25.0); CREATININE SERUM 0.35 mg/dL (0.70-1.30); GFR 272.62; GLUCOSE FASTING 103.0 mg/dL (65-100); OSMOLALITY SERUM 274.0 MOSM/KG (275-295)
[2024-11-22 08:56] VITALS: BP 127/94; O2SAT 96
[2024-11-22] MEDS ORDERED: MAGNESIUM SULFATE IN WATER 50 ML IV NR (10:15)
[2024-11-22 18:08] VITALS: BP 125/87; O2SAT 95
[2024-11-22 22:17] LABS: BASO % 0.8 % (0.1-1.2); EOS # 0.04 (0.04-0.54); EOS % 0.5 % (0.7-7.0); LYMPH # 0.81 (1.18-3.74); LYMPH % 10.6 % (19.3-53.1); MEAN PLATELET VOLUME 10.20 fl (9.4-12.4); MONO # 0.29 (0.24-0.82); MONO % 3.8 % (4.7-12.5); NEUT # 5.35 (1.56-6.13); NEUT % 70.3 % (34.0-71.1); RED CELL DISTRIBUTION WIDTH 15.9 % (11.6-14.4)
[2024-11-23 00:25] LABS: EOSINOPHIL MAN 3.0 %; LYMPHOCYTE MAN 10.0 %; METAMYELOCYTE 3.0 %; MONOCYTE MAN 5.0 %; MYELOCYTE 2.0 %; NEUTROPHILS MAN 77.0 %
[2024-11-23 02:12] VITALS: BP 133/92; O2SAT 94
[2024-11-23 06:49] LABS: BASO % 0.9 % (0.1-1.2); EOS # 0.04 (0.04-0.54); EOS % 0.6 % (0.7-7.0); LYMPH # 0.73 (1.18-3.74); LYMPH % 10.9 % (19.3-53.1); MEAN PLATELET VOLUME 10.70 fl (9.4-12.4); MONO # 0.36 (0.24-0.82); MONO % 5.4 % (4.7-12.5); NEUT # 4.64 (1.56-6.13); NEUT % 69.5 % (34.0-71.1); RED CELL DISTRIBUTION WIDTH 16.0 % (11.6-14.4)
[2024-11-23 07:28] LABS: ALT/SGPT 61.0 U/L (12-78); AST/SGOT 258.0 U/L (15-37); BILIRUBIN TOTAL 5.89 mg/dL (0.3-1.2); BUN CREA RATIO 50.0 (7.0-25.0); CREATININE SERUM 0.3 mg/dL (0.70-1.30); GFR 325.7; GLOBULINA 3.4 G/DL (2.4-3.5); GLUCOSE FASTING 103.0 mg/dL (65-100); OSMOLALITY SERUM 275.0 MOSM/KG (275-295)
[2024-11-23 09:42] VITALS: BP 129/88; O2SAT 90
[2024-11-23 18:14] VITALS: BP 119/84; O2SAT 96
[2024-11-24 01:00] VITALS: BP 107/79; O2SAT 95
[2024-11-24 08:00] VITALS: BP 110/81; O2SAT 98
[2024-11-24] MEDS ORDERED: OXYCODONE HCL5 MG PO (09:24)
[2024-11-24] MEDS ORDERED: GABAPENTIN400 MG PO (09:24)
[2024-11-24] MEDS ORDERED: PANTOPRAZOLE SO40 MG PO (09:24)
[2024-11-24] MEDS ORDERED: FENTANYL1 EAC4 TD (09:24)
[2024-11-24] MEDS ORDERED: DEXAMETHASONE4 MG PO (09:24)
[2024-11-24] MEDS ORDERED: FENTANYL1 EAC6 TD (10:19)
[2024-11-24] MEDS ORDERED: DEXTROSE 5 %-0.45 % SOD CHLORD 1,000 ML IV SCH (10:45)
== END 2024-11-24 12:53 | disposition home or self-care (01) | DRG 872 ==
LOC: ER 10:01 → MEDJ 15:21 → SEC-K 15:21 → MEDJ 16:06
PROVIDERS: General Practice; Internal Medicine; Internal Medicine Infectious Disease; ADMIT Internal Medicine Geriatric Medicine; ATTEND Internal Medicine Geriatric Medicine
PROC: BW21ZZZ Computerized Tomography (CT Scan) of Abdomen and Pelvis (ICD-10-PCS; principal; 2024-10-31)
PROC: BB24ZZZ Computerized Tomography (CT Scan) of Bilateral Lungs (ICD-10-PCS; 2024-10-31)
PROC: 30233N1 Transfusion of Nonautologous Red Blood Cells into Peripheral Vein, Percutaneous Approach (ICD-10-PCS; 2024-10-31)
PROC: 8E0ZXY6 Isolation (ICD-10-PCS; 2024-10-31)
PROC: 0T25X0Z Change Drainage Device in Kidney, External Approach (ICD-10-PCS; 2024-11-02)
PROC: BW21YZZ Computerized Tomography (CT Scan) of Abdomen and Pelvis using Other Contrast (ICD-10-PCS; 2024-11-09)
PROC: BB24ZZZ Computerized Tomography (CT Scan) of Bilateral Lungs (ICD-10-PCS; 2024-11-09)
PROC: 0T25X0Z Change Drainage Device in Kidney, External Approach (ICD-10-PCS; 2024-11-14)
PROC: BW21YZZ Computerized Tomography (CT Scan) of Abdomen and Pelvis using Other Contrast (ICD-10-PCS; 2024-11-21)
PROC: BB24YZZ Computerized Tomography (CT Scan) of Bilateral Lungs using Other Contrast (ICD-10-PCS; 2024-11-21)
PROC: 30233R1 Transfusion of Nonautologous Platelets into Peripheral Vein, Percutaneous Approach (ICD-10-PCS; 2024-11-22)
DX: A41.9 Sepsis, unspecified organism (principal); N39.0 Urinary tract infection, site not specified; C18.7 Malignant neoplasm of sigmoid colon; C79.51 Secondary malignant neoplasm of bone; C78.7 Secondary malignant neoplasm of liver and intrahepatic bile duct; N17.8 Other acute kidney failure; B96.4 Proteus (mirabilis) (morganii) as the cause of diseases classified elsewhere; D50.0 Iron deficiency anemia secondary to blood loss (chronic); N99.522 Malfunction of incontinent external stoma of urinary tract; D69.6 Thrombocytopenia, unspecified; D70.1 Agranulocytosis secondary to cancer chemotherapy; F43.20 Adjustment disorder, unspecified